=== PATIENT | female | born 1985 | race African-American/Black ===

== ENCOUNTER 2018-05-15 08:48 | Emergency (ER) | payer MEDICARE, MEDICAID ==
[~2018-05-15] VITALS: Ht 162.6 cm; Wt 70.0 kg
[2018-05-15] MEDS ORDERED: ONDANSETRON HCL 4MG/2ML VIAL IV STA (09:40)
[2018-05-15] MEDS ORDERED: SODIUM CHLORIDE 0.9% 1,000 ML IV ONE (09:40)
[2018-05-15] MEDS ORDERED: MORPHINE SULFATE 4 MG/ML CPJ (NOT FOR IM USE) IV STA (09:40)
[2018-05-15 10:07] LABS: BASOPHILS % 0.2 % (0.0-2.0); EOSINOPHILS % 0.7 % (0.0-5.0); HEMATOCRIT. 42.6 % (36.0-48.0); LYMPHOCYTES % 11.3 % (20.0-50.0); MEAN CORPUSCULAR HEMOGLOBIN 29.3 pg (28.0-32.0); MEAN CORPUSCULAR VOLUME 89.4 fL (81.0-99.0); MONOCYTES % 12.9 % (2.0-8.0); NEUTROPHILS % 74.9 % (40.0-76.0); PLATELET 192 x1000/uL (130-400); RED BLOOD CELL COUNT 4.77 mill/uL (4.2-5.4); RED CELL DISTRIBUTION WIDTH 13.7 % (11.6-14.6)
[2018-05-15 10:13] LABS: CHLORIDE 101 mEq/L (98-107)
[2018-05-15 10:30] LABS: CLARITY URINE CLOUDY (CLEAR); COLOR URINE DARK YELLOW (YELLOW); KETONES URINE NEGATIVE (NEGATIVE); LEUKOCYTE ESTERASE URINE 2+ (NEGATIVE); NITRITE URINE POSITIVE (NEGATIVE); OCCULT BLOOD URINE NEGATIVE (NEGATIVE); PROTEIN URINE 1+ (NEGATIVE); SPECIFIC GRAVITY URINE 1.019 (1.005-1.030)
[2018-05-15 10:38] LABS: HCG SCREEN NEGATIVE
[2018-05-15] MEDS ORDERED: KETOROLAC 30MG/ML VIAL IV ONE (12:45)
[2018-05-15 13:22] VITALS: BP 128/76
== END 2018-05-15 13:29 | disposition home or self-care (01) ==
LOC: ER 08:48
DX: K80.80 Other cholelithiasis without obstruction (principal); N39.0 Urinary tract infection, site not specified; D72.829 Elevated white blood cell count, unspecified; J45.909 Unspecified asthma, uncomplicated; F17.200 Nicotine dependence, unspecified, uncomplicated; Z86.19 Personal history of other infectious and parasitic diseases; Z98.890 Other specified postprocedural states; Z98.51 Tubal ligation status
CPT/HCPCS: 36415; 76700; 80053; 81003; 83690; 84703; 85025; 87077; 87086; 87186; 96374; 96375; 99285; J1885; J2270; J2405; J7030